=== PATIENT | male | born 1980 | race Caucasian/White ===

== ENCOUNTER 2018-09-15 18:42 | Emergency (ER) | payer SELFPAY ==
[~2018-09-15] VITALS: Ht 127 cm; Wt 63.0 kg
[2018-09-15 18:50] VITALS: Ht 127 cm; Wt 63.0 kg
[2018-09-15] MEDS ORDERED: KETOROLAC 30 MG INJ IM STA (20:35)
--- NOTE | 2018-09-15 21:16 | ERD ---
ER Documentation Chief Complaint Chief Complaint LEFT WRIST PAIN S/P GLF HPI 38-year-old male with no reported past medical history, dwarfism presents with complaint of left wrist pain following injury. Patient states he was had a family alliance party and had a several drinks subsequently slipping and falling landing on left wrist. Has had pain in left wrist but denies any numbness or tingling of affected limb, still able to wiggle his fingers without issue. He otherwise without complaint, no other reported injuries. ROS All systems reviewed and are negative except as per history of present illness. Medications Home Meds Active Scripts Ibuprofen* (Motrin*) 800 Mg Tab, 800 MG PO Q6, #30 TAB Prov:JEUDINE,GETHO PA-C 09/15/18 Hydrocodone/Acetaminophen ([place] 5-325 Tablet) 1 Each Tablet, 1 EACH PO Q6, #10 TAB Prov:JEUDINE,GETHO PA-C 09/15/18 Allergies Allergies: Coded Allergies: No Known Allergy (Unverified , 09/15/18) PMhx/Soc Medical and Surgical Hx: pt denies Medical Hx, pt denies Surgical Hx Hx Alcohol Use: No Hx Substance Use: No Hx Tobacco Use: No Smoking Status: Never smoker FmHx Family History: No diabetes, No coronary disease, No other Physical Exam Vitals Vital Signs Date Temp Pulse Resp B/P (MAP) Pulse Ox O2 O2 Flow FiO2 Time Delivery Rate 09/15/18 97.8 81 18 124/61 99 Room Air 21:35 (82) 09/15/18 97.9 114 18 130/60 98 18:50 (83) Physical Exam I have reviewed the triage vital signs. Const: Well nourished, well developed, appears stated age Eyes: PERRL, no conjunctival injection HENT: NCAT, Neck supple without meningismus CV: RRR, Warm, well-perfused extremities RESP: CTAB, Unlabored respiratory effort GI: soft, non-tender, non-distended, no masses MSK: No gross deformities appreciated Mild swelling noted to dorsal surface of left wrist, tender to palpation, patient unable to extend left wrist, good distal pulses, wiggles all fingers, SI LT throughout left upper extremity Skin: Warm, dry. No rashes Neuro: grossly non focal Psych: Appropriate mood and affect. Results 24 hrs Current Medications Medications Dose Sig/Vitaliy Start Time Status Last (Trade) Ordered Route PRN Stop Time Admin Dose Reason Admin Ketorolac 30 mg ONCE STAT 09/15/18 DC 09/15/18 Tromethamine IM 20:35 09/15/18 20:41 (Toradol) 20:36 Procedures/MDM 38-year-old male who presents status post fall with injury to left wrist. ED course: L Wrist x-ray with impacted fracture of the distal radial metaphysis and a fracture of the ulnar styloid. The joint spaces are preserved. There is no significant soft tissue swelling. Toradol given for pain Discharge with short arm splint applied. Patient neurovascular intact post splint application. Will discharge with appropriate pain medication follow-up. She informed to follow-up with PMD as he might need referral to enrichment specialist. Patient expressing understanding and agreement with treatment plan. DISPOSITION PLAN: We discussed follow up with the patient's primary care doctor within 24 to 48 ho urs. Patient counseled regarding my diagnostic impression and care plan. Prior to discharge all questions answered. Pt agrees with treatment plan and understands strict return precautions. Precautionary instructions provided including instructions to return to the ER if not improving or for any worsening or changing symptoms or concerns. Disclaimer: Inadvertent spelling and grammatical errors are likely due to EHR/dictation software use and do not reflect on the overall quality of patient care. Also, please note that the electronic time recorded on this note does not necessarily reflect the actual time of the patient encounter. Departure Diagnosis: Primary Impression: Wrist injury Condition: Stable SANIYA WHEELER PA-C Sep 15, 2018 21:16
[2018-09-15] MEDS ORDERED: IBUP800T48 PO (21:18)
[2018-09-15] MEDS ORDERED: HYDR-4011 PO (21:18)
[2018-09-15 21:35] VITALS: BP 124/61; PULSE 81; RESP 18
== END 2018-09-15 21:35 | disposition home or self-care (01) ==
LOC: FTE 18:42
DX: S52.612A Displaced fracture of left ulna styloid process, initial encounter for closed fracture (principal); W01.0XXA Fall on same level from slipping, tripping and stumbling without subsequent striking against object, initial encounter; Y92.9 Unspecified place or not applicable
CPT/HCPCS: 29125; 73110; 73130; 96372; 99284; J1885